=== PATIENT | male | born 1975 | race Two or more races ===

== ENCOUNTER → 2020-03-12 | Outpatient (CLI) | payer SELFPAY ==
[2020-03-12 08:38] LABS: ABSOLUTE EOSINOPHILS # (AUTO) 0.4 10^3/uL (0.0-0.6); ABSOLUTE LYMPHOCYTES (AUTO) 2.1 10^3/uL (0.5-4.7); ABSOLUTE MONOCYTES (AUTO) 0.6 10^3/uL (0.1-1.4); ABSOLUTE NEUT (AUTO) 3.8 10^3/uL (1.7-8.2); BASOPHILS % (AUTO) 0.7 % (0-2); EOSINOPHILS % (AUTO) 5.2 % (0-6); HEMATOCRIT 45.1 % (37.9-51.0); HEMOGLOBIN 15.5 g/dL (13.5-17.0); LYMPHOCYTES % (AUTO) 30.8 % (13-45); MEAN CORPUSCULAR HGB CONC 34.5 g/dL (32.0-36.0); MEAN CORPUSCULAR VOLUME 87 fl (80-97); MONOCYTES % (AUTO) 8.4 % (3-13); PLATELET COUNT 215 10^3/uL (150-450); RED BLOOD COUNT 5.18 10^6/uL (4.35-5.55); RED CELL DISTRIBUTION WIDTH 13.8 % (11.5-14.0); SEGMENTED NEUTROPHILS % (AUTO) 54.9 % (42-78); TOTAL CELLS COUNTED % (AUTO) 100 %; WHITE BLOOD COUNT 6.9 10^3/uL (4.0-10.5)
[2020-03-12 08:42] LABS: APPEARANCE,URINE CLEAR; BILIRUBIN,URINE NEGATIVE (NEGATIVE); COLOR,URINE YELLOW; GLUCOSE, URINE NEGATIVE (NEGATIVE); KETONES,URINE NEGATIVE (NEGATIVE); LEUKOCYTE ESTERASE,URINE NEGATIVE (NEGATIVE); NITRITE,URINE NEGATIVE (NEGATIVE); PROTEIN,URINE NEGATIVE (NEGATIVE); URINE SPECIFIC GRAVITY 1.028; UROBILINOGEN,URINE NEGATIVE mg/dL (<2.0)
[2020-03-12 08:59] LABS: ALBUMIN 4.6 g/dL (3.5-5.0); ALKALINE PHOSPHATASE 69 U/L (38-126); ANION GAP 7 (5-19); ASPARTATE AMINO TRANSFERASE 61 U/L (17-59); BILIRUBIN,TOTAL 0.8 mg/dL (0.2-1.3); BLOOD UREA NITROGEN 14 mg/dL (7-20); CALCIUM 9.6 mg/dL (8.4-10.2); CARBON DIOXIDE 28 mmol/L (22-30); CHLORIDE 103 mmol/L (98-107); GLUCOSE 113 mg/dL (75-110); POTASSIUM 4.6 mmol/L (3.6-5.0); TOTAL PROTEIN 7.8 g/dL (6.3-8.2); TRIGLYCERIDES 84 mg/dL (<150); URIC ACID 7.3 mg/dL (3.5-8.5)
[2020-03-12 09:10] LABS: DIRECT LDL 107 mg/dL (<100)
[2020-03-12 09:13] LABS: FREE T4 (FREE THYROXINE) 0.87 ng/dL (0.78-2.19)
[2020-03-12 09:27] LABS: THYROID STIMULATING HORMONE 11.6 uIU/mL (0.47-4.68)
--- NOTE | 2020-03-12 11:27 | RADIOLOGY REPORT (SQ) ---
EXAM DESCRIPTION: KNEE BILAT AP UPRIGHT IMAGES COMPLETED DATE/TIME: 03/12/2020 8:04 am REASON FOR STUDY: BILATERAL PRIMARY OSTEOARTHRITIS OF KNEE I10 ESSENTIAL (PRIMARY) HYPERTENSION M17 .0 BILATERAL PRIMARY OSTEOARTHRITIS OF KNEE COMPARISON: None. NUMBER OF VIEWS: Two views. TECHNIQUE: AP standing bilateral knees. LIMITATIONS: None. FINDINGS: MINERALIZATION: Normal. RIGHT KNEE BONES: No acute fracture. No worrisome bone lesions. MEDIAL COMPARTMENT: No significant osteophytes. No joint space narrowing. No chondrocalcinosis. LATERAL COMPARTMENT: No significant osteophytes. No joint space narrowing. No chondrocalcinosis. PATELLOFEMORAL COMPARTMENT: No significant osteophytes. No joint space narrowing. No chondrocalc inosis. LEFT KNEE BONES: No acute fracture. No worrisome bone lesions. MEDIAL COMPARTMENT: No significant osteophytes. Mild joint space narrowing. No chondrocalcinosis. LATERAL COMPARTMENT: No significant osteophytes. No joint space narrowing. No chondrocalcinosis. PATELLOFEMORAL COMPARTMENT: No significant osteophytes. No joint space narrowing. No chondrocalc inosis. IMPRESSION: Early osteoarthritic changes medial compartment left knee. TECHNICAL DOCUMENTATION: JOB ID: [id number] 2010 [employer]- All Rights Reserved Reading location - IP/workstation name: [email or web address]
[2020-03-13 06:37] LABS: CREATININE URINE 199.4 mg/dL (Not Estab.); MICROALBUMIN URINE 25.2 ug/mL (Not Estab.)
== END ==
LOC: EDBD 07:30 → OD 07:30
PROVIDERS: ATTEND Internal Medicine
DX: I10 Essential (primary) hypertension (principal); M17.0 Bilateral primary osteoarthritis of knee
CPT/HCPCS: 36415; 73565; 80053; 80061; 81001; 82043; 82570; 83036; 84439; 84443; 84550; 85025